=== PATIENT | female | born 1970 | race Caucasian/White ===

== ENCOUNTER 2017-01-03 08:08 | Outpatient (CLI) | payer OTHER ==
--- NOTE | 2017-01-03 08:30 | DIAGNOSTIC IMAGING REPORT ---
PROCEDURE: XR LUMBAR SPINE 2 OR 3 VIEWS INDICATION: LUMBAR RADICULOPATHY TECHNIQUE: Three views. COMPARISON: None. FINDINGS: Osseous structures and disc spaces are normal. No evidence of an acute process or fracture. IMPRESSION: 1. Negative lumbar spine.
== END 2017-01-03 23:00 ==
LOC: XR SRH 08:08
DX: M54.16 Radiculopathy, lumbar region (principal)